=== PATIENT | female | born 2005 | race Caucasian/White ===

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

== ENCOUNTER 2024-01-22 15:24 | Outpatient (REF) | payer OTHER, SELFPAY ==
[2024-01-24 12:34] LABS: Chlamydia Result Negative (Negative)
[2024-01-24 16:55] LABS: GC Result Negative (Negative)
== END 2024-01-22 15:25 | disposition home or self-care (01) ==
LOC: LBN 15:24
PROVIDERS: PCP Nurse Practitioner Pediatrics; Visit Provider Advanced Practice Midwife
DX: Z20.2 Contact with and (suspected) exposure to infections with a predominantly sexual mode of transmission (principal)
CPT/HCPCS: 87491; 87591

== ENCOUNTER 2025-01-06 02:18 | Outpatient (CLI) | payer OTHER, SELFPAY ==
--- NOTE | 2025-01-06 14:38 | DI.RAD_ITS ---
Exam(s) XR FOOT RT COMPLETE EXAM: XR FOOT RT COMPLETE CLINICAL HISTORY: Bilateral bunions,rt foot, m21.611. TECHNIQUE: 2D digital imaging was performed of the right foot. Three images were obtained. AP, obl ique and lateral views were obtained. COMPARISON: CR XR FOOT RT COMPLETE from 06/29/2022 FINDINGS: BONES: No acute fracture is present. No bony destructive lesion is seen. JOINTS: No dislocation present. The joint spaces are well maintained. SOFT TISSUE: Normal. IMPRESSION: Unremarkable radiographs of the right foot. DATA REPOSITORY: RADIATION DOSE DELIVERED:
--- NOTE | 2025-01-06 14:39 | DI.RAD_ITS ---
Exam(s) XR FOOT LT COMPLETE EXAM: XR FOOT LT COMPLETE CLINICAL HISTORY: Bilateral bunions,lt foot, m21.612. TECHNIQUE: 2D digital imaging was performed of the left foot. Three images were obtained. AP, obli que and lateral views were obtained. COMPARISON: No exams were available for comparison FINDINGS: BONES: No acute fracture is present. No bony destructive lesion is seen. JOINTS: No dislocation present. The joint spaces are well maintained. SOFT TISSUE: Normal. IMPRESSION: Unremarkable radiographs of the left foot. DATA REPOSITORY: RADIATION DOSE DELIVERED:
== END 2025-01-06 02:38 ==
LOC: DI 02:18
PROVIDERS: PCP Nurse Practitioner Family; Visit Provider Podiatrist
DX: M21.611 Bunion of right foot (principal); M21.612 Bunion of left foot
CPT/HCPCS: 73630

== ENCOUNTER 2025-06-20 11:43 | Emergency (ER) | payer OTHER, SELFPAY ==
[2025-06-20 11:45] VITALS: BP 113/75; PULSE 64; RESP 14; TEMP 36.8; O2SAT 98
--- NOTE | 2025-06-20 11:45 | DI.RAD_ITS ---
Exam(s) XR ANKLE RT COMPLETE XR FOOT RT COMPLETE EXAM: XR ANKLE RT COMPLETE CLINICAL HISTORY: twisted playing basketball, b/l pain. TECHNIQUE: 2D digital imaging was performed. Three views of the ankle and foot. COMPARISON: CR XR FOOT RT COMPLETE from 01/06/2025 CR,XR XR FOOT RT COMPLETE from 06/20/2025 FINDINGS: BONES: No acute fracture is present. No bony destructive lesion is seen. JOINTS: The ankle mortise is normally aligned. SOFT TISSUE: Swelling around the malleoli. IMPRESSION: Soft tissue swelling, otherwise unremarkable radiographs of the right ankle and foot. The preliminary [facility] report was reviewed. DATA REPOSITORY: RADIATION DOSE DELIVERED:
--- NOTE | 2025-06-20 12:00 | W.ED.GENAD ---
Discharge Plan Disposition Patient Disposition: Home Condition: Stable Discharge Details Clinical Impression: Right ankle sprain, Right foot sprain Primary Care Provider: Aissatou Dawn ED Provider: Oly Carlton Home Meds and New Rx's Prescriptions: No Action albuterol sulfate 90 mcg/actuation HFA aerosol inhaler 2 inh IH Q4H Qty: 18 1RF Rx Instructions: 2 puffs every 4 hours as needed (DME) [employer] Aerosol [place] Enhancer Spacer See Dose Instructions .ROUTE .MEDSUPPLY Qty: 1 0RF Dose Instruction: As directed Rx Instructions: As directed levonorgestrel-ethinyl estrad [Vienva] 0.1-20 mg-mcg tablet See Rx Instructions .ROUTE .COMPLEX Qty: 84 2RF Dose Instruction: TAKE ONE TABLET BY MOUTH EVERY DAY Rx Instructions: TAKE ONE TABLET BY MOUTH EVERY DAY sertraline [Zoloft] 50 mg tablet 50 mg PO DAILY Qty: 90 0RF Discharge Instructions Instructions: Foot Sprain (DC) Additional Instructions: You were seen in the emergency department today for evaluation of a right ankle and foot injury. In our department you do full physical examination performed, and had x-ray imaging that did not show any sign of broken bones. You have quite a bit of swelling in that area, and your injury is most concerning for a sprain of the ankle/foot. As we discussed, you can wear the walking boot anytime you are out and about to support these damaged ligaments, and should do so for the next week or so, or longer if you are still experiencing pain. You should continue to use ice and elevation to manage swelling. Please use therapeutic dosing of Tylenol (acetaminophen) & Advil (ibuprofen) in an alternating fashion as follows: Take 1000mg of Tylenol every 6 hours without missing doses- that is 4 times per day. Intermediate in between the Tylenol doses, take 600mg of Advil also on a 6 hour schedule, that is also 4 times per day. With this strategy, you will be taking something for fever/pain as often as every 3 hours. The daily maximum dosing of Tylenol is 4000mg, and the daily maximum dosing of Advil is 2400mg. Please note that some common cold medications & prescription pain medications may contain acetaminophen and you need to read OTC drug labels and factor that in to maximum daily doses. You can use crutches as needed for walking, but it is not dangerous for you to bear weight on your ankle while in the boot. If you find that you are improving and want to have a less bulky support item, you can obtain a lace up ankle stabilizer [id number] at the pharmacy and use that when up and about as your injury starts to heal. Please follow-up with your primary care provider in the next few days to discuss this visit and any symptoms that change, worsen, or persist. Thank you for allowing us to be part of your care. Stand Alone Forms: Portal Information HPI General Mode of arrival: ambulatory. Date/Time Provider Initiated Documentation: 06/20/25 11:46. Limitations to Documentation: no limitations. Information obtained by: patient, family and old records reviewed. 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 The patient was playing basketball on Saturday, and twisted her ankle during that game. She reports that she immediately had pain in her ankle and foot, had difficulty moving her toes due to pain, was provided with a boot and crutches from athletic training. She has been utilizing ibuprofen and ice at home, last dose yesterday. States that she has noted that the swelling is worsening on the medial aspect of her foot and ankle. She was able to ambulate without the boot today, has not been using the crutches, but does feel some pain when she weightbears. She did not injure any other part of her body, has no prior surgical history of this right ankle, and has otherwise been in her normal state of health. Related Data Home Medications Medication Instructions Recorded Confirmed albuterol sulfate 90 mcg/actuation 2 inh inhalation Q4H #18 grams 03/25/25 06/20/25 aerosol inhaler inhalational spacing device (Humble #1 ea 03/25/25 06/20/25 Aerosol [place] Enhancer spacer) levonorgestrel-ethinyl estradiol See Rx Instructions .Route 03/25/25 06/20/25 0.1 mg-20 mcg tablet (Vienva) .COMPLEX #84 tabs sertraline 50 mg tablet (Zoloft) 50 mg PO DAILY #90 tabs 06/09/25 06/20/25 Previous Rx's Medication Instructions Recorded albuterol sulfate 90 mcg/actuation 2 inh inhalation Q4H #18 grams 03/25/25 aerosol inhaler inhalational spacing device (Humble #1 ea 03/25/25 Aerosol [place] Enhancer spacer) levonorgestrel-ethinyl estradiol See Rx Instructions .Route 03/25/25 0.1 mg-20 mcg tablet (Vienva) .COMPLEX #84 tabs sertraline 50 mg tablet (Zoloft) 50 mg PO DAILY #90 tabs 06/09/25 Allergies Allergy/AdvReac Type Severity Reaction Status Date / Time amoxicillin Allergy Skin Rash Verified 06/20/25 11:51 General Stated Complaint: Orthopedic CASSIUS: 4 Exam Narrative Exam Narrative: Gen: Awake and alert, in no apparent distress HEENT: Non-icteric sclera Neck: Supple Lungs: No apparent respiratory distress, normal respiratory effort. CV: Appears well perfused Abdomen: Non-distended MSK: Moves 4 extremities without apparent limitation in ROM, with the exception of the right ankle. The patient has no tenderness, swelling, or decreased range of motion of the right knee, no tenderness to palpation over the proximal fibula. There is no reproduction of pain or instability with stressing of the right sided syndesmosis. Tenderness to palpation along the medial and lateral malleoli with some bruising along the lateral aspect. She has tenderness to palpation over the lateral midfoot on the right side, without obvious deformity. She does have some swelling of the foot and ankle and generalized distribution. Strong DP pulses, full strength and sensation though moving the toes does reproduce her pain. Skin: Visualized skin without rashes, cyanosis. Neuro: Normal Gait, no obvious focal deficits or facial asymmetry. Speaks in full, clear sentences. Psych: Appropriate for situation. Course Vital Signs Vital signs: Vital Signs Temperature 36.8 C 06/20/25 11:45 Pulse 64 06/20/25 11:45 Respiratory Rate 14 06/20/25 11:45 Blood Pressure 113/75 06/20/25 11:45 Pulse Oximetry 98 06/20/25 11:45 Temperature 36.8 C 06/20/25 11:45 Temperature Source Oral 06/20/25 11:45 Pulse 64 06/20/25 11:45 Respiratory Rate 14 06/20/25 11:45 Blood Pressure 113/75 06/20/25 11:45 Blood Pressure Position Sitting 06/20/25 11:45 Pulse Oximetry 98 06/20/25 11:45 Pain Level 5 06/20/25 11:45 Comment 03/07 with ambulation 06/20/25 11:45 Medical Decision Making This is a 19-year-old female patient presenting for evaluation of her right ankle and foot injury. Differential includes but is not limited to fracture, especially of the ankle and midfoot, certainly considered sprain, less likely dislocation in this ambulatory patient. No evidence for neurovascular derangement. This is an isolated injury and the patient is otherwise in her normal state of health. We will obtain an x-ray of the affected ankle and foot, and provide the patient with Tylenol and ibuprofen. - X-ray reviewed by myself, as well as the radiologist report. There is no evidence of fracture or dislocation, soft tissue swelling is noted concerning for sprain. I shared these findings with the patient and her parent, and I did recommend that she immobilize the area when up and about with either a walking boot or an ankle lace up stabilizer. She can use crutches as needed for weightbearing as tolerated. I discussed conservative management with Tylenol and ibuprofen and liberalization of the immobilization as her symptoms and pain started to improve. She has access to an valve steamer through her sports, and as well as a primary care provider with whom she will follow-up to discuss this injury. At this time, the patient has had a full medical evaluation and is safe for discharge to home. They are hemodynamically stable, ambulatory, and tolerating PO. They are understanding of the follow-up plan and return precautions. They left our facility without incident. Oly Carlton MD [facility] All Active Problems (Updated 06/20/25 @ 13:18 by Oly Carlton MD) Right foot sprain (Acute) Right ankle sprain (Acute) Pain in both feet (Acute) Tailor's bunion of both feet (Acute) Bilateral bunions (Acute) Anxiety (Chronic) Possible exposure to STD (Acute) Encounter for screening examination for sexually transmitted disease (Acute) Healthy adult on routine physical examination (Acute) Screening for sickle-cell disease or trait (Acute) Low back pain (Acute) Acne (Acute) Intermittent asthma (Chronic 09/03/18) Medical History Chronic abdominal pain Family History Mother No problems noted. Father Essential hypertension Brother Asthma Other Personal history of malignant neoplasm M aunt, M uncle, MGGM Grandparent Essential hypertension Personal history of malignant neoplasm colon CA Crohns disease Hyperlipidemia Asthma Social History Smoking/Tobacco Use Status: Never Second Hand Exposure: No Smoking risk assessment performed?: Yes Alcohol Intake: never Substance use type: does not use Adopted: No Foster care: No Household members: family Communication Needs: None Education Level: college Details: [employer] bere Current gender identity: female What type of physical activity do you participate in: other Details: Field Hockey, Basketball, Track, Dance Seatbelt use: always Helmet use: Yes Helmet use: sometimes Water heater temp set <120 deg: Yes Fire extinguisher in home: Yes Carbon monox detector in home: Yes Firearms in home: No
[2025-06-20] MEDS: Ibuprofen 600 MG TAB PO (12:08)
[2025-06-20] MEDS: Acetaminophen 500 MG TAB 1000 MG PO (12:08)
--- NOTE | 2025-06-20 13:01 | DI.VRAD_ITS ---
PROCEDURE INFORMATION: Exam: XR Right Ankle Exam date and time: 06/20/2025 12:19 PM Age: 19 years old Clinical indication: Injury or trauma; Other: Twisted playing basketball, b/l pain; Sprain or strain; Ankle; Right TECHNIQUE: Imaging protocol: Radiologic exam of the right ankle. Views: 3 or more views. COMPARISON: CR XR FOOT RT COMPLETE 01/06/2025 2:30 PM FINDINGS: Bones/joints: No acute fracture or dislocation Soft tissues: Mild lateral swelling IMPRESSION: Lateral soft tissue swelling. No discrete fracture noted Dictated and Authenticated by: Lucien Javier MD. Orderin [facility] Dante Aldridge MD
--- NOTE | 2025-06-20 13:01 | DI.VRAD_ITS ---
PROCEDURE INFORMATION: Exam: XR Right Foot Exam date and time: 06/20/2025 12:21 PM Age: 19 years old Clinical indication: Injury or trauma; Other: Twisted playing basketball, b/l pain; Sprain or strain; Foot; Right TECHNIQUE: Imaging protocol: Radiologic exam of the right foot. Views: 3 or more views. COMPARISON: CR XR FOOT RT COMPLETE 01/06/2025 2:30 PM FINDINGS: Bones/joints: Normal. Soft tissues: Normal. IMPRESSION: No acute findings. Dictated and Authenticated by: Lucien Javier MD. Orderin [facility] Dante Aldridge MD
== END 2025-06-20 13:41 | disposition home or self-care (01) ==
PROVIDERS: Emergency Provider Emergency Medicine; PCP Internal Medicine
DX: S93.401A Sprain of unspecified ligament of right ankle, initial encounter (principal); S93.601A Unspecified sprain of right foot, initial encounter; Y93.67 Activity, basketball
CPT/HCPCS: 99283; 99284; 73610; 73630